=== PATIENT | male | born 2000 | race Two or more races ===

== ENCOUNTER 2020-08-15 15:23 | Emergency (ER) | payer SELFPAY ==
[2020-08-15] MEDS ORDERED: DEXAMETHASONE SOD PHOS INJ 10 MG/1 ML VIAL IM ONE (15:54)
[2020-08-15] MEDS ORDERED: KETOROLAC TROMETHAMINE 60 MG/2 ML SDV IM ONE (15:56)
--- NOTE | 2020-08-15 15:58 | ER Document Report ---
HPI - HPI Time Seen by Provider: 08/15/20 15:43 Context: Patient is a 19-year-old male with history of Marfan's syndrome who presents emergency department with a chief complaint of back pain. Patient states that he has had back pain for years, and states that he has been to physical therapy. Patient states the only thing that helps him is the Cobra stretch. Patient states that he feels his back pain has been getting progressively worse over time. Denies any loss of bladder or bowel function. Denies any history of IV drug use. Denies history of cancer. Denies numbness or tingling. - ROS Systems Reviewed and Negative: Yes All other systems reviewed and negative - CONSTITUTIONAL Constitutional: DENIES: Fever, Chills - EENT EENT: DENIES: Sore Throat, Ear Pain - NEURO Neurology: DENIES: Weakness - GASTROINTESTINAL Gastrointestinal: DENIES: Abdominal Pain, Nausea, Patient vomiting - URINARY Urinary: DENIES: Dysuria, Urgency, Frequency - MUSCULOSKELETAL Musculoskeletal: REPORTS: Back Pain. DENIES: Extremity pain, Swelling - DERM Skin Color: Normal Skin Problems: None Past Medical History - General Information source: Patient - Social History Smoking Status: Unknown if Ever Smoked Family History: Reviewed & Not Pertinent Vertical Provider Document - CONSTITUTIONAL Agree With Documented VS: Yes Exam Limitations: No Limitations General Appearance: No Apparent Distress - HEENT HEENT: Atraumatic, Normocephalic, PERRLA - NECK Neck: Normal Inspection - RESPIRATORY Respiratory: Breath Sounds Normal, No Respiratory Distress - CARDIOVASCULAR Cardiovascular: Regular Rate, Regular Rhythm Pulses: Normal: Radial - MUSCULOSKELETAL/EXTREMETIES Musculoskeletal/Extremeties: FROM, Tender - Bilateral paraspinal muscles and back; curved spine, consistent with scoliosis on exam - NEURO Level of Consciousness: Awake, Alert, Appropriate Motor/Sensory: No Motor Deficit, No Sensory Deficit - DERM Integumentary: Warm, Dry, No Rash Course - Re-evaluation Re-evalutation: 08/15/20 16:07 Differential diagnosis for back pain includes muscle spasm, muscle strain, slipped disc cauda equina syndrome, vertebral fracture, vertebral tumor, epidural abscess, pyelonephritis, or AAA. Based on history and exam, the most likely etiology of the patient's back pain is chronic due to his Marfan syndrome. Emergent MRI is not indicated at this time because the patient does not have new weakness, or cauda equina syndrome. Patient does not have bladder or bowel dysfunction. Patient does not have history of IV drug use, therefore, I do not suspect an epidural abscess. Patient does not have recent weight loss or night sweats, and does not have a known history of cancer. Patient received a dose of Decadron and Toradol here in the emergency department. Advised him to not take his Voltaren this evening. Patient is to have close follow-up with his primary care provider. He is in agreement with this plan. Follow-up precautions were given. Verbal discharge instructions were given to the patient. They verbalized understanding. They are stable for discharge. Discharge - Discharge Clinical Impression: Back pain Qualifiers: Back pain location: low back pain Chronicity: chronic Back pain laterality: bilateral Sciatica presence: without sciatica Qualified Code(s): M54.5 - Low back pain Condition: Stable Disposition: HOME, SELF-CARE Additional Instructions: You were seen today in the emergency department for back pain. You received a dose of Toradol and Decadron here in the emergency department. Please do not take your Voltaren tonight. You can take it in the morning. Please continue your physical therapy. Follow-up with your primary care provider. Forms: Return to Work Referrals: HALEY BRADY MD [NO LOCAL MD] - Follow up in 3-5 days
[2020-08-15 16:14] VITALS: BP 124/76
== END 2020-08-15 16:18 | disposition home or self-care (01) ==
LOC: ER 15:23
DX: M54.5 Low back pain (principal)
CPT/HCPCS: 99284; 96372; J1885; J1100; 96361; 96365; 96375; 99285